=== PATIENT | female | born 1975 | race Hispanic/Latino ===

== ENCOUNTER 2023-01-08 23:19 | Inpatient (IN) | payer SELFPAY ==
[2023-01-08] MEDS ORDERED: NA CHLORIDE 0.9% 1,000 ML ONE (23:31)
[2023-01-08] MEDS ORDERED: Magnesium Sulfate 2gm IVPB 2 G/50 ML BAG IV ONE (23:35)
[2023-01-08 23:37] LABS: Arterial Blood Carboxyhemoglob 0.5 % (0-1.5); Blood Gas Oxyhemoglobin 95.8 % (94-97); Blood O2 Saturation 97.9 % (92-98.5)
[2023-01-08 23:48] LABS: Absolute Lymphocytes (CBC) 0.5 K/uL (0.7-4.9); Hematocrit 35.1 % (36.0-45.0); Lymphocytes % 5.8 % (15.3-44.8); MCV 93.2 fL (80-100); MPV 8.7 fL (7.6-11.3); RBC Red Blood Cell Count 3.77 M/uL (3.86-4.86)
[2023-01-09] LABS: Protime INR 1.02
[2023-01-09 00:13] LABS: ALT/SGPT 47 U/L (13-56); AST/SGOT 171 U/L (15-37); Albumin 3.4 g/dL (3.4-5.0); Alkaline Phosphatase 58 U/L (45-117); BUN Blood Urea Nitrogen 17 mg/dL (7-18); Bicarbonate 16 mEq/L (21-32); Bilirubin Direct 0.2 mg/dL (0-0.2); Bilirubin Indirect, Calculated 0.1 mg/dL (0.2-0.8); Bilirubin Total 0.3 mg/dL (0.2-1.0); Glomerular Filtration Rate 31 ml/min (=/>90); Glucose Level 86 mg/dL (74-106); Potassium 4.4 mEq/L (3.5-5.1); Protein, Total 6.8 g/dL (6.4-8.2); Sodium Level 132 mEq/L (136-145)
[2023-01-09 00:45] LABS: Blood Morphology Comment NOT SEEN (NOT SEEN); Platelet Estimate ADEQ
[2023-01-09 00:55] LABS: Specific Gravity < 1.005 (1.005-1.030); Urine Bacteria <20 /HPF (<20); Urine Bilirubin NEGATIVE (Negative); Urine Blood Negative (Negative); Urine Clarity Clear (Clear); Urine Color Colorless (Yellow); Urine Glucose NEGATIVE (Negative); Urine Protein NEGATIVE (Negative); Urine RBC None Seen /HPF (None Seen); Urine Urobilinogen Normal (Normal)
[2023-01-09 01:36] LABS: Barbiturates NEGATIVE (NEGATIVE); Benzodiazepines NEGATIVE (NEGATIVE); Cocaine NEGATIVE (NEGATIVE); METHAMPHETAM POSITIVE (NEGATIVE); Methadone NEGATIVE (NEGATIVE); Opiates NEGATIVE (NEGATIVE); Phencyclidine NEGATIVE (NEGATIVE); THC Cannibis NEGATIVE (NEGATIVE)
--- NOTE | 2023-01-09 03:32 | ER ---
Nurse's Notes [facility] [place] Name: Corrina Blake Age: 47 yrs Sex: Female : 1975 Arrival Date: 01/08/2023 Time: 23:19 Bed 4 Private MD: Diagnosis: Seroquel overdose;Acute urinary retention;Bandemia;Acute kidney injury Presentation: 01/08 23:21 Chief complaint: EMS states: EMS C/O patient possible overdose on Seroquel 200mg pf1 tablet x 10 pills per mother and patient had been drinking alcohol all day. [place] [employer] arrived with an ELIOT in place for patient. EMS stated patient was found laying on the bed unconscious and breathing. 23:21 Coronavirus screen: At this time, unable to obtain information related to travel pf1 outside the [place] Ebola Screen: Unable to complete the Ebola screening because: Patient is unresponsive. Initial Sepsis Screen: Does the patient meet any 2 criteria? HR > 90 bpm. Does the patient have a suspected source of infection? No. Patient's initial sepsis screen is negative. Risk Assessment: Do you want to hurt yourself or someone else? Unable to obtain. 23:21 Method Of Arrival: EMS: [facility] pf1 23:21 Acuity: ISMAEL 2 pf1 01/09 13:55 Onset of symptoms was January 09, 2023. ld1 Historical: - Allergies: 00:05 Unable to obtain; pf1 - Home Meds: 00:00 Adderall XR Oral [Active]; Seroquel 200 mg oral tablet [Active]; pf1 - PMHx: 00:00 ADD; pf1 - Immunization history:: Adult Immunizations unknown. - Social history:: Smoking status: unknown Patient uses alcohol, smell of ETOH from patient. - Unable to obtain history due to: altered mental status. Screenin:06 [facility] ED Fall Risk Assessment (Adult) History of falling in the last 3 months, pf1 including since admission No falls in past 3 months (0 pts) Confusion or Disorientation Yes (5 pts) Intoxicated or Sedated Yes (3 pts) Impaired Gait Yes (1 pt) Mobility Assist Device Used No (0 pt) Altered Elimination Yes (1 pt) Score/Fall Risk Level 3 or more points = High Risk Oriented to surroundings, Maintained a safe environment, Educated pt \\T\\ family on fall prevention, incl call for assistance when getting out of bed, Assessed \\T\\ reinforced patient's understanding of fall precautions, Provided non-skid footwear, Hourly rounding (assess needs \\T\\ fall precautionary measures) done, Used ambulatory aids as needed (educated on \\T\\ assisted with), Used gait belt as appropriate Implemented a Fall Risk Plan of Care, Remained w/in arm's length of patient and in sight while toileting, Offered frequent toileting (1:1 observation), Remained with patient while ambulating, Utilized family, sitter, or virtual ground intelligence officer as indicated. 00:17 Abuse screen: unknown. Nutritional screening: No deficits noted. Tuberculosis pf1 screening: unknown. Assessment: 01/08 23:35 Reassessment: Poison Control called, Spoke with Grisel, Case # [id number]. Recommendations pf1 are: monitor for elevated HR and BP, seizures, dysrhythmia, agitation, QT prolonged duration and to give magnesium and NS 0.9%, repeat labs, check magnesium level and EKG. 23:43 General: Appears distressed, ill, Behavior is uncooperative. Pain: Unable to use pain jb4 scale. Patient is unresponsive. Neuro: Mcadams Agitation-Sedation Scale (RASS): -3 Moderate Sedation Level of Consciousness is obtunded, Oriented to Pt only responsive to painful stimuli.. Cardiovascular: Patient's skin is warm and dry. Respiratory: Airway is patent Respiratory effort is even, unlabored, Respiratory pattern is regular, symmetrical. GI: No signs and/or symptoms were reported involving the gastrointestinal system. : No signs and/or symptoms were reported regarding the genitourinary system. EENT: No signs and/or symptoms were reported regarding the EENT system. Derm: Skin is intact, Skin is pink, warm \\T\\ dry. 01/09 00:19 Reassessment: Patient appears in no apparent distress at this time. Patient and/or pf1 family updated on plan of care and expected duration. Pain level reassessed. Patient states symptoms have not improved. 00:38 General: Boyfriend stated patient was asleep in bed when he arrived home from work, pf1 heard a thump, then found patient laying on the floor then assisted her back to bed. Best Friend stated patient gets depressed around her deceases mother's anniversary date that is coming up. Best Friend stated patient called texted her at 1630 a picture of the bottle of Seroquel, then called the patient and patient told her don't worry about it and to call her psychiatrist Dr. Boateng and hung the phone up. . 00:58 Reassessment: Pt wakes to verbal stimuli. remains lethargic but now following simple jb4 commands. 02:00 Reassessment: Pt continues to rest in bed with eyes closed, respirations remain even jb4 and unlabored. Family remains at the bedside. 03:00 Reassessment: No changes from previously documented assessment. Patient and/or family jb4 updated on plan of care and expected duration. Pain level reassessed. 03:55 Reassessment: Pt remains responsive to verbal stimuli and follows basic commands. jb4 Pupils are pinpoint and eyes have a deviated gaze. Continues to withdraw from pain, ER physician and admitting hospitalist are aware of pt's condition. 12:30 Reassessment: Attempted to call report on patient. Staff not sure if patient is coming ld1 up due to possible discharge. Notified Charge nuse. 13:00 Reassessment: Tried to call report - Nurse not accepting patient at this time due to ld1 possible discharge. Notified Charge nurse and greenhouse florist. 13:26 Reassessment: Attempted to call report - third time. Nurse at lunch at the moment. ld1 14:17 Reassessment: Called patient report - flipped patient to med surg room. Floor nursing ld1 staff called ER to report "Patient is not appropriate for medsurg admission." Notified ER charge nurse and greenhouse florist of situation. Vital Signs: 01/08 23:21 BP 83 / 50; Pulse 98; Resp 18; Temp 98(A); Pulse Ox 97% on 2 lpm NC; Weight 64.5 kg; pf1 23:45 BP 87 / 51; Pulse 101; Resp 15; Pulse Ox 100% on 2 lpm NC; jb4 01/09 00:22 BP 103 / 64; Pulse 100; Resp 12; Pulse Ox 100% on 2 lpm NC; jb4 00:58 BP 96 / 61; Pulse 93; Resp 13; Pulse Ox 100% on 2 lpm NC; jb4 02:00 BP 103 / 63; Pulse 91; Resp 13; Pulse Ox 100% on 2 lpm NC; jb4 03:00 BP 108 / 90; Pulse 88; Resp 10; Pulse Ox 100% on 2 lpm NC; jb4 03:59 BP 104 / 61; Pulse 90; Resp 11; Pulse Ox 100% on 2 lpm NC; jb4 08:26 BP 110 / 69; Pulse 96; Resp 13; Pulse Ox 100% on 2 lpm NC; zm 13:28 BP 101 / 79; Pulse 112; Resp 18; Pulse Ox 96% on R/A; ld1 ED Course: 01/08 23:21 Patient arrived in ED. sb4 23:21 No provider procedures requiring assistance completed. Maintain EMS IV. Dressing pf1 intact. Good blood return noted. Site clean \\T\\ dry. Gauge \\T\\ site: 18 gauge to LFA. 23:21 Arm band placed on right wrist. pf1 23:23 Angel Bose MD is Attending Physician. rt 23:25 Patient has correct armband on for positive identification. Placed in gown. Bed in low pf1 position. Side rails up X2. 23:40 Inserted saline lock: 18 gauge in right forearm, using aseptic technique. Blood pf1 collected. 23:42 Jeremías Penny RN is Primary Nurse. jb4 23:52 Chest Single View XRAY In Process Unspecified. EDMS 23:52 Shoulder Right (2 View) XRAY In Process Unspecified. EDMS 01/09 00:00 Straight cath inserted, using sterile technique, 14 Fr. Specimen obtained. Returned pf1 900ml urine output. Patient tolerated well. 00:05 Triage completed. pf1 00:27 CT Head C Spine In Process Unspecified. EDMS 00:30 Alas cath inserted, using sterile technique, 16 Fr., by ED staff, balloon inflated, to pf1 gravity drainage, clamped. 03:30 Fatoumata Mitchell MD is Hospitalizing Provider. rt 03:31 Patient admitted, IV remains in place. pf1 Administered Medications: 01/08 23:20 Drug: NS 0.9% IV 1000 ml Route: IV; Rate: 1 bolus; Site: left forearm; pf1 01/09 00:15 Follow up: Response: No adverse reaction; Marked relief of symptoms; IV Status: pf1 Completed infusion; IV Intake: 1000ml 01/08 23:42 Drug: Magnesium Sulfate IVPB 2 grams Route: IVPB; Infused Over: 2 hrs; Site: right jb4 forearm; 01/09 01:42 Follow up: Response: No adverse reaction; Marked relief of symptoms; IV Status: pf1 Completed infusion; IV Intake: 100ml 05:20 Drug: Magnesium Sulfate IVPB 1 grams Route: IVPB; Infused Over: 1 hrs; Site: right pf1 antecubital; 05:48 Follow up: Response: No adverse reaction; Marked relief of symptoms pf1 Medication: 04:00 VIS not applicable for this client. pf1 Intake: 00:15 IV: 1000ml; Total: 1000ml. pf1 01:42 IV: 100ml; Total: 1100ml. pf1 Outcome: 03:31 Decision to Hospitalize by Provider. rt 03:31 Admitted to ER Hold. Please see [facility] for further documentation. pf1 03:31 Condition: stable 03:31 Instructed on the need for admit, to friend Demonstrated understanding of instructions. 15:04 Patient left the ED. kj1 Signatures: Dispatcher [employer] EDMS Jeremías Penny RN RN jb4 Tahira Medina kj1 Georgia Vallejo RN RN ld1 Suzan Tirado Sophia PA-C PA-C [email or web address] Angel Bose MD MD rt Ramandeep Yan RN RN pf1 Corrections: (The following items were deleted from the chart) 00:58 00:22 BP 103 / 64; Pulse 100bpm; Resp 12bpm; Pulse Ox 100% RA; [place] [id number] 05:15 06/12 23:35 Reassessment: Poison Control called, Spoke with Grisel, Case # [id number]. 1 Recommendations are: monitor for elevated HR and BP, seizures, dysrhythmia, agitation, QT prolonged duration and to give magnesium and NS 0.9%. . pf1 01/09 06:32 00:38 General: Boyfriend stated patient was asleep in bed when he arrived home from [facility] work, heard a thump, then found patient laying on the floor then assisted her back to bed. Best Friend stated patient gets depressed around her deceases mother's birthday that is coming up. Best Friend stated patient called texted her at 1630 a picture of the bottle of Seroquel, then called the patient and patient told her don't worry about it and to call her psychiatrist Dr. Boateng and hung the phone up. . pf1
--- NOTE | 2023-01-09 03:32 | EDPHYS ---
Physician Documentation [facility] Name: Corrina Blake Age: 47 yrs Sex: Female : 1975 Arrival Date: 01/08/2023 Time: 23:19 Bed 4 Private MD: ED Physician Angel Bose HPI: 01/08 23:44 This 47 yrs old Female presents to ER via Unassigned with complaints of rt Possible overdose, altered mental status. 23:44 History limited due to patient with altered mental status. The patient presents to the rt ED fine possible overdose. About 1 week ago, the patient was prescribed 15 pills of 200 mg of Seroquel, family states that she has been drinking all day, found an empty bottle of Seroquel. Patient reportedly had somewhat low blood pressures to the 90s systolic. No further history could be obtained. Symptoms are severe in severity, no other aggravating or alleviating factors.. Historical: - Allergies: 01/09 00:05 Unable to obtain; pf1 - Home Meds: 00:00 Adderall XR Oral [Active]; Seroquel 200 mg oral tablet [Active]; pf1 - PMHx: 00:00 ADD; pf1 - Immunization history:: Adult Immunizations unknown. - Social history:: Smoking status: unknown Patient uses alcohol, smell of ETOH from patient. - Unable to obtain history due to: altered mental status. ROS: 01/08 23:44 Unable to obtain ROS due to altered mental status. rt Exam: 23:44 Head/Face: Normocephalic, atraumatic. rt 23:44 Chest/axilla: Normal chest wall appearance and motion. Nontender with no deformity. No lesions are appreciated. Cardiovascular: Regular rate and rhythm with a normal S1 and S2. No gallops, murmurs, or rubs. Normal PMI, no JVD. No pulse deficits. Respiratory: Lungs have equal breath sounds bilaterally, clear to auscultation and percussion. No rales, rhonchi or wheezes noted. No increased work of breathing, no retractions or nasal flaring. Abdomen/GI: Soft, non-tender, with normal bowel sounds. No distension or tympany. No guarding or rebound. No evidence of tenderness throughout. Skin: Warm, dry with normal turgor. Normal color with no rashes, no lesions, and no evidence of cellulitis. MS/ Extremity: Pulses equal, no cyanosis. Neurovascular intact. Full, normal range of motion. 23:44 Constitutional: The patient appears Somnolent, localizes the pain 23:44 Eyes: Constricted pupils, conjunctiva normal. 23:44 ECG was reviewed by the Attending Physician. 23:44 Neuro: Localizes to pain, moves all 4 extremities equally. Vital Signs: 23:21 BP 83 / 50; Pulse 98; Resp 18; Temp 98(A); Pulse Ox 97% on 2 lpm NC; Weight 64.5 kg; pf1 23:45 BP 87 / 51; Pulse 101; Resp 15; Pulse Ox 100% on 2 lpm NC; jb4 01/09 00:22 BP 103 / 64; Pulse 100; Resp 12; Pulse Ox 100% on 2 lpm NC; jb4 00:58 BP 96 / 61; Pulse 93; Resp 13; Pulse Ox 100% on 2 lpm NC; jb4 02:00 BP 103 / 63; Pulse 91; Resp 13; Pulse Ox 100% on 2 lpm NC; jb4 03:00 BP 108 / 90; Pulse 88; Resp 10; Pulse Ox 100% on 2 lpm NC; jb4 03:59 BP 104 / 61; Pulse 90; Resp 11; Pulse Ox 100% on 2 lpm NC; jb4 08:26 BP 110 / 69; Pulse 96; Resp 13; Pulse Ox 100% on 2 lpm NC; zm 13:28 BP 101 / 79; Pulse 112; Resp 18; Pulse Ox 96% on R/A; ld1 MDM: 01/08 23:23 Patient medically screened. rt 01/09 03:45 Differential Diagnosis Seroquel overdose, prolonged QT, anticholinergic toxidrome, rt acute renal failure. Data reviewed: vital signs, nurses notes, lab test result(s), EKG, radiologic studies. Consideration of Admission/Observation Patient was admitted/placed on observation. Management of patient was discussed with the following: Hospitalist: Agrees to admit. I considered the following discharge prescriptions or medication management in the emergency department Medications were administered in the Emergency Department. See MAR. Independent interpretation of the following test(s) in the Emergency Department CT Scan: My interpretation is No hemorrhage seen on interpretation of the CT scan images. 01/08 23:24 Order name: Acetaminophen; Complete Time: 01:31 rt 01/08 23:24 Order name: Basic Metabolic Panel; Complete Time: :31 rt 01/08 23:24 Order name: CBC with Diff; Complete Time: : rt 01/08 23:24 Order name: ETOH Level; Complete Time: :31 rt 01/08 23:24 Order name: Hepatic Function; Complete Time: :31 rt 01/08 23:24 Order name: PT-INR; Complete Time: : rt 01/08 23:24 Order name: Ptt, Activated; Complete Time: : rt 01/08 23:24 Order name: Salicylate; Complete Time: : rt 01/08 23:24 Order name: Urinalysis w/ reflexes; Complete Time: : rt 01/08 23:24 Order name: Urine Drug Screen; Complete Time: 01:37 rt 01/08 23:24 Order name: ABG; Complete Time: : rt 01/08 23:24 Order name: Magnesium; Complete Time: : rt 01/08 23:24 Order name: AMMONIA; Complete Time: : rt 01/08 23:57 Order name: Manual Differential; Complete Time: : EDMS 01/09 00:54 Order name: Test Serum, Qualitat; Complete Time: : EDMS 01/09 06:48 Order name: CBC with Automated Diff EDMS 01/09 06:50 Order name: Lactate w/ 2H reflex if indic. EDMS 01/09 07:18 Order name: Comprehensive Metabolic Panel EDMS 01/09 07:18 Order name: Phosphorus EDMS 01/09 07:18 Order name: Creatine Phosphokinase EDMS 01/09 07:18 Order name: Magnesium EDMS 01/09 07:18 Order name: Lipase EDMS 01/08 23:24 Order name: CT Head C Spine rt 01/08 23:24 Order name: Chest Single View XRAY rt 01/08 23:41 Order name: Shoulder Right (2 View) XRAY rt 01/08 23:24 Order name: EKG; Complete Time: 23:25 rt 01/08 23:24 Order name: EKG - Nurse/Tech; Complete Time: 23:34 rt 01/08 23:24 Order name: IV Saline Lock; Complete Time: 23:34 rt 01/08 23:24 Order name: Labs collected and sent; Complete Time: 23:46 rt 01/08 23:24 Order name: Suicide Precautions; Complete Time: 23:31 rt 01/08 23:24 Order name: Suicide Screening ([place]); Complete Time: 06:35 rt 01/09 00:38 Order name: Straight Cath; Complete Time: 00:38 pf1 01/09 00:38 Order name: Alas; Complete Time: 00:38 pf1 01/09 05:29 Order name: EKG - Nurse/Tech; Complete Time: 05:29 sb4 EC/12 23:44 Rate is 98 beats/min. Rhythm is regular, Normal Sinus Rhythm with No ectopy. QRS [place] rt is Normal. NV interval is normal. QRS interval is normal. QT interval is prolonged at 505 msec. Clinical impression: NSR w/ Non-specific ST/T Changes. Interpreted by me. Administered Medications: 23:20 Drug: NS 0.9% IV 1000 ml Route: IV; Rate: 1 bolus; Site: left forearm; pf1 01/09 00:15 Follow up: Response: No adverse reaction; Marked relief of symptoms; IV Status: pf1 Completed infusion; IV Intake: 1000ml 01/08 23:42 Drug: Magnesium Sulfate IVPB 2 grams Route: IVPB; Infused Over: 2 hrs; Site: right jb4 forearm; 01/09 01:42 Follow up: Response: No adverse reaction; Marked relief of symptoms; IV Status: pf1 Completed infusion; IV Intake: 100ml 05:20 Drug: Magnesium Sulfate IVPB 1 grams Route: IVPB; Infused Over: 1 hrs; Site: right pf1 antecubital; 05:48 Follow up: Response: No adverse reaction; Marked relief of symptoms pf1 Disposition Summary: 01/09/23 03:31 Hospitalization Ordered Hospitalization Status: Inpatient Admission rt Provider: Fatoumata Mitchell rt Condition: Fair rt Problem: new rt Symptoms: are unchanged rt Bed/Room Type: Standard rt Location: Telemetry/MedSurg (Inpatient)(01/09/23 11:04) bd Room Assignment: 407(01/09/23 11:04) bd Diagnosis - Seroquel overdose rt - Acute urinary retention rt - Bandemia rt - Acute kidney injury rt Forms: - Medication Reconciliation Form rt - SBAR form rt Critical care time excluding procedures: 03:46 Critical care time: Bedside Care: 30 minutes, Consultation: 5 minutes. Total time: 35 rt minutes Signatures: Dispatcher [employer] EDMS Bambi Groves Cindy, WINDY RN cg Jeremías Penny, RN RN jb4 Laxmi Marsh PALakesha PALakesha sb4 Angel Bose MD MD rt Ramandeep Yan, RN RN pf1 Corrections: (The following items were deleted from the chart) 00:54 06 23:25 Test, Urine+UC.LAB.BRZ ordered. EDMN EDMS 01/09 04:19 03:31 Telemetry/MedSurg (Inpatient) rt cg 04:19 03:31 rt cg 11:04 04:19 [facility] ER HOLD cg bd 11:04 04:19 ERHOLD- cg bd
--- NOTE | 2023-01-09 03:54 | P.HP ---
Certification for Inpatient Patient admitted to: Inpatient With expected LOS: <2 Midnights Patient will require the following post-hospital care: Other Practitioner: I am a practitioner with admitting privileges, knowledge of patient current condition, hospital course, and medical plan of care. Services: Services provided to patient in accordance with Admission requirements found in Title 42 Section 412.3 of the Code of Federal Regulations Patient History Date of Service: 01/09/23 Reason for admission: Seroquel OD History of Present Illness: Ms. Blake is a 47 year old female with past medical history of anxiety and ADHD who presented to the emergency department via EMS after suspected seroquel overdose. Friend at bedside as historian who states that she gets depressed around this time of year as it is her mother's birthday. She was prescribed 15 pills of 200 mg seroquel on January 01 for anxiety. Friend states that patient has been drinking alcohol all day today and later texted her a photo of the seroquel bottle. When her and patient's boyfriend went to check on her later, she was barely responsive and the bottle of seroquel was empty. Upon arrival to ED, she was hypotensive- 80s/50s. Poison control was contacted and recommended to monitor patient for seizures, dysrhythmia, agitation, QT prolongation. EKG did demonstrate a prolonged QT. She was given 2L fluid bolus as well as [address] negative. Labs are significant for hemoglobin 11.4, hematocrit 35.1, sodium 132, CO2 16, creatinine 1.9, AST 171, serum alcohol 196, UDS positive for amphetamine (has adderall prescription). BP has improved, respirations remain slow, patient still only responsive to painful stimuli. Repeat EKG with slightly longer QT. Additional gram of magnesium administered. Will admit for further management. Allergies morphine Allergy (Verified 01/09/23 04:19) Rash Penicillins Allergy (Verified 01/09/23 04:19) Rash Home medications list reviewed: Yes - Past Medical/Surgical History Diabetic: No -: ADHD -: Anxiety Psychosocial/ Personal History: Patient lives at home. She has a boyfriend. - Family History Family History: Reviewed- Non-Contributory - Social History Smoking Status: Unknown if ever smoked Alcohol use: Yes CD- Drugs: No Caffeine use: Yes Place of Residence: Home Review of Systems is unable to be obtained Physical Examination - Vital Signs Temperature: 98 F Blood Pressure: 104/61 Pulse: 90 Respirations: 11 Pulse Ox (%): 100 (2L NC) - Physical Exam General: Other (responsive only to painful stimuli) HEENT: Atraumatic, Other (pupils pinpoint, reactive), Sclerae nonicteric Neck: Supple, 2+ carotid pulse no bruit Respiratory: Clear to auscultation bilaterally, Normal air movement Cardiovascular: Regular rate/rhythm, Normal S1 S2 Gastrointestinal: Normal bowel sounds, No tenderness Musculoskeletal: No tenderness Integumentary: No rashes Neurological: Normal tone, Normal reflexes 2+ Urinary: Alas catheter - Studies Laboratory Data (last 24 hrs) 01/08/23 23:30: PT 11.2, INR 1.02, APTT 27.1 01/08/23 23:30: WBC 8.70, Hgb 11.4 L, Hct 35.1 L, Plt Count 213 01/08/23 23:30: Sodium 132 L, Potassium 4.4, BUN 17, Creatinine 1.99 H, Glucose 86, Magnesium 2.0, Total Bilirubin 0.3, AST 171 H, ALT 47, Alkaline Phosphatase 58 Assessment and Plan - Problems (Diagnosis) (1) Drug overdose Current Visit: Yes Status: Acute Qualifiers: Encounter type: initial encounter Injury intent: undetermined intent Qualified Code(s): T50.904A - Poisoning by unspecified drugs, medicaments and biological substances, undetermined, initial encounter (2) Anticholinergic syndrome Current Visit: Yes Status: Acute Qualifiers: Encounter type: initial encounter Injury intent: undetermined intent Filippo lified Code(s): T44.3X4A - Poisoning by other parasympatholytics [anticholinergics and antimuscarinics] and spasmolytics, undetermined, initial encounter (3) Bandemia Current Visit: Yes Status: Acute (4) CORTNEY (acute kidney injury) Current Visit: Yes Status: Acute (5) Anxiety Current Visit: Yes Status: Chronic (6) ADHD Current Visit: Yes Status: Chronic Qualifiers: Attention deficit-hyperactivity disorder type: unspecified Qualified Code(s): F90.9 - Attention-deficit hyperactivity disorder, unspecified type (7) Anemia Current Visit: Yes Status: Chronic Qualifiers: Anemia type: unspecified type Qualified Code(s): D64.9 - Anemia, unspecified - Plan Patient is admitted for further management of seroquel overdose. Poison control case #[id number]. Unconfirmed if this was a suicide attempt or not. Patient is not awake/alert enough to verify. ELIOT in place per [place] [employer]. Continue IV hydration. Repeat labs- CBC, BMP, CPK, mag. Bandemia likely stress reaction. Alas in place as she did have some urinary retention, likely anticholingeric toxidrome. Psychiatry consulted. May need [facility] evaluation if unavailable. Consider another EKG to evaluate QT. Monitor and replete electrolytes per protocol. NPO for now. Currently requiring 2L NC. Wean as tolerated. Current respirations slow. Full code. Discharge Plan: Home Plan to discharge in: 48 Hours - Advance Directives Does patient have a Living Will: No Does patient have a Durable POA for Healthcare: No - Code Status/Comfort Care Code Status Assessed: Yes Code Status: Full Code Physician Review: Patient Assessed, Agree with Above Assessment and Plan Critical Care: No Time Spent Managing Pts Care (In Minutes): 50
[2023-01-09] MEDS ORDERED: NA CHLORIDE 0.9% 1,000 ML ONE (04:19)
[2023-01-09 04:22] VITALS: BMI 25.9
[2023-01-09] MEDS ORDERED: ALBUTEROL 2.5 MG/3 ML NEB SOL NEB PRN ×2 (04:35→14:00)
[2023-01-09] MEDS: NA CHLORIDE 0.9% 1,000 ML IV SCH ×3 (04:35→23:12)
[2023-01-09] MEDS ORDERED: MAGNESIUM SULFATE 1 gm IVPB 1 GM/100 ML BAG IV ONE (05:16)
[2023-01-09 06:31] LABS: Absolute Lymphocytes (CBC) 0.5 K/uL (0.7-4.9); Hematocrit 39.4 % (36.0-45.0); Lymphocytes % 5.5 % (15.3-44.8); MPV 8.5 fL (7.6-11.3); RBC Red Blood Cell Count 4.24 M/uL (3.86-4.86)
[2023-01-09 06:51] LABS: ALT/SGPT 147 U/L (13-56); AST/SGOT 829 U/L (15-37); Albumin 3.3 g/dL (3.4-5.0); Alkaline Phosphatase 68 U/L (45-117); BUN Blood Urea Nitrogen 21 mg/dL (7-18); Bicarbonate 17 mEq/L (21-32); Bilirubin Total 0.4 mg/dL (0.2-1.0); Glomerular Filtration Rate 28 ml/min (=/>90); Glucose Level 90 mg/dL (74-106); Lipase 28 U/L (13-75); Phosphorus 6.4 mg/dL (2.5-4.9); Potassium 5.3 mEq/L (3.5-5.1); Protein, Total 7.1 g/dL (6.4-8.2); Sodium Level 131 mEq/L (136-145)
[2023-01-09 07:17] LABS: Creatine Phosphokinase > 14000 U/L (26-192)
[2023-01-09] MEDS: ENOXAPARIN 30 MG/0.3 ML SQ SCH (09:00)
[2023-01-09] MEDS ORDERED: ENOXAPARIN 40 MG/0.4 ML SQ SCH (09:00)
--- NOTE | 2023-01-09 22:03 | RAD REPORT ---
EXAM DESCRIPTION: CT - Head C Spine Mpr Wo Con - 01/09/2023 6:49 am CLINICAL HISTORY: The patient is 47 years old and is Female; ams TECHNIQUE: Axial computed tomography images of the head/brain and cervical spine without intravenous contrast. Sagittal and coronal reformatted images were created and reviewed. This CT exam was pe rformed using one or more of the following dose reduction techniques: automated exposure control, a djustment of the mA and/or kV according to patient size, and/or use of iterative reconstruction techn ique. COMPARISON: No relevant prior studies available. FINDINGS: Brain: Unremarkable. No hemorrhage. No significant white matter disease. No edema. Ventricles: Unremarkable. No ventriculomegaly. Skull: No acute fracture. Sinuses: Sphenoid sinus mucosal thickening. Mastoid air cells: Unremarkable as visualized. No mastoid effusion. Vertebrae: See below. Discs/spinal canal/neural foramina: Moderate right and moderate to severe left neural foraminal n arrowing at C4-5. Moderate bilateral neural foraminal narrowing at C5-6. Disc space narrowing with degenerative endplate changes at C4-5 and C5-6. Soft tissues: Unremarkable. IMPRESSION: No acute intracranial abnormality. No acute findings in the cervical spine. Electronically signed by: Harris Wilson MD 01/09/2023 12:48 AM CDT Due to temporary technical issues with the PACS/Fluency reporting system, reports are being signed by the in house radiologists without review as a courtesy to insure prompt reporting. The interpreting radiologist is fully responsible for the content of the report.
--- NOTE | 2023-01-09 22:05 | RAD REPORT ---
EXAM DESCRIPTION: RAD - Shoulder Right 2 View - 01/08/2023 11:51 pm CLINICAL HISTORY: The patient is 47 years old and is Female; ams TECHNIQUE: Two or more views of the right shoulder. COMPARISON: No relevant prior studies available. FINDINGS: Bones/joints: Unremarkable. No acute fracture. No dislocation. Soft tissues: Unremarkable. * A single impression for all exams can be found at the end of this report IMPRESSION: XR Chest, 1 View: No acute findings in the chest. XR Right Shoulder Complete, 2 or More Views: No acute fracture or dislocation. Electronically signed by: Harris Wilson MD 01/09/2023 12:10 AM CDT Due to temporary technical issues with the PACS/Fluency reporting system, reports are being signed by the in house radiologists without review as a courtesy to insure prompt reporting. The interpreting radiologist is fully responsible for the content of the report.
--- NOTE | 2023-01-09 22:08 | RAD REPORT ---
EXAM DESCRIPTION: RAD - Chest Single View - 01/08/2023 11:51 pm CLINICAL HISTORY: The patient is 47 years old and is Female; ams TECHNIQUE: Frontal view of the chest. COMPARISON: No relevant prior studies available. FINDINGS: Lungs: Unremarkable. No consolidation. Pleural space: Unremarkable. No pneumothorax. Heart: Unremarkable. Mediastinum: Unremarkable. Bones/joints: Unremarkable. Upper abdomen: Elevation of the right hemidiaphragm. * A single impression for all exams can be found at the end of this report EXAM DESCRIPTION: XR Right Shoulder Complete, 2 or More Views CLINICAL HISTORY: The patient is 47 years old and is Female; ams TECHNIQUE: Two or more views of the right shoulder. COMPARISON: No relevant prior studies available. FINDINGS: Bones/joints: Unremarkable. No acute fracture. No dislocation. Soft tissues: Unremarkable. * A single impression for all exams can be found at the end of this report IMPRESSION: XR Chest, 1 View: No acute findings in the chest. XR Right Shoulder Complete, 2 or More Views: No acute fracture or dislocation. Electronically signed by: Harris Wilson MD 01/09/2023 12:10 AM CDT Due to temporary technical issues with the PACS/Fluency reporting system, reports are being signed by the in house radiologists without review as a courtesy to insure prompt reporting. The interpreting radiologist is fully responsible for the content of the report.
[2023-01-10 07:03] LABS: Absolute Lymphocytes (CBC) 0.7 K/uL (0.7-4.9); Hematocrit 33.8 % (36.0-45.0); Lymphocytes % 5.7 % (15.3-44.8); MCV 92.6 fL (80-100); MPV 8.6 fL (7.6-11.3); RBC Red Blood Cell Count 3.65 M/uL (3.86-4.86)
[2023-01-10 07:37] LABS: Albumin 2.9 g/dL (3.4-5.0); Bilirubin Total 0.5 mg/dL (0.2-1.0); Potassium 4.5 mEq/L (3.5-5.1); Protein, Total 6.4 g/dL (6.4-8.2)
[2023-01-10] MEDS: NA CHLORIDE 0.9% 1,000 ML IV SCH (07:38)
[2023-01-10] MEDS: ENOXAPARIN 30 MG/0.3 ML SQ SCH (07:39)
--- NOTE | 2023-01-10 08:20 | EKG ---
Test Date: 2023-01-09 Test Time: 05:05:00 Supervisor Treating And Pumping: ETIENNE MEASUREMENT RESULTS: Intervals: Rate: 84 MS: 150 QRSD: 88 QT: 436 QTc: 515 [place]: P: 56 MS: 150 QRS: 52 T: 47 INTERPRETIVE STATEMENTS: Normal sinus rhythm Prolonged QT Abnormal ECG Compared to ECG 01/08/2023 23:25:20 ST (T wave) deviation no longer present Electronically Signed On 01-10-23 08:18:01 CDT by Robert Kirk
--- NOTE | 2023-01-10 08:21 | EKG ---
Test Date: 2023-01-08 Test Time: 23:25:20 Physician Compensation Analyst: YFN MEASUREMENT RESULTS: Intervals: Rate: 98 UT: 140 QRSD: 86 QT: 396 QTc: 505 [place]: P: 72 UT: 140 QRS: 75 T: 46 INTERPRETIVE STATEMENTS: Normal sinus rhythm Nonspecific ST abnormality Prolonged QT Abnormal ECG No previous ECG available for comparison Electronically Signed On 01-10-23 08:18:04 CDT by Robert Kirk
--- NOTE | 2023-01-10 10:06 | P.PN ---
Date of Service: 01/10/23 Subjective More awake and alert; not suicidal; rhabdomyolysis from fall; also unsure as to the quantity of seroquel-NMS is in the differential; ALT/AST from muscle enzymes Physical Examination - Vital Signs reviewed - Physical Exam General: Other (responsive only to painful stimuli) Respiratory: Clear to auscultation bilaterally, Normal air movement Cardiovascular: Regular rate/rhythm, Normal S1 S2 Gastrointestinal: Normal bowel sounds, No tenderness Musculoskeletal: right shoulder and right hip (decreased ROM in the right shoulder) Neurological: No focal deficits Urinary: Alas catheter Assessment and Plan - Problems (Diagnosis) (1) Drug overdose Current Visit: Yes Status: Acute Qualifiers: Encounter type: initial encounter Injury intent: undetermined intent Qualified Code(s): T50.904A - Poisoning by unspecified drugs, medicaments and biological substances, undetermined, initial encounter (2) Anticholinergic syndrome Current Visit: Yes Status: Acute Qualifiers: Encounter type: initial encounter Injury intent: undetermined intent Qualified Code(s): T44.3X4A - Poisoning by other parasympatholytics [anticholinergics and antimuscarinics] and spasmolytics, undetermined, initial encounter (3) Bandemia Current Visit: Yes Status: Acute (4) CORTNEY (acute kidney injury) Current Visit: Yes Status: Acute (5) Anxiety Current Visit: Yes Status: Chronic (6) ADHD Current Visit: Yes Status: Chronic Qualifiers: Attention deficit-hyperactivity disorder type: unspecified Qualified Code(s): F90.9 - Attention-deficit hyperactivity disorder, unspecified type (7) Anemia Current Visit: Yes Status: Chronic Qualifiers: Anemia type: unspecified type Qualified Code(s): D64.9 - Anemia, unspecified - Plan 1. IVFs-D5 w/ 3 amp of sodium bicarb; 2. Renal function elevated; monitor urine pH 3. Nephrology consult 4. Renal US 5. Shoulder and hip X-rays 6. GI/DVT prophyalxis - Code Status/Comfort Care Code Status Assessed: Yes Code Status: Full Code Physician Review: Patient Assessed, Agree with Above Assessment and Plan Critical Care: No Time Spent Managing Pts Care (In Minutes): 50
[2023-01-10] MEDS: D5W 1,000 ML with NA BICARB 8.4% 150 MEQ IV SCH ×4 (10:30→22:03)
--- NOTE | 2023-01-10 11:36 | RAD REPORT ---
EXAM DESCRIPTION: RAD - Hip Right 2 View - 01/10/2023 11:27 am CLINICAL HISTORY: Right hip pain FINDINGS: No fracture or dislocation is seen. 2.5 centimeter area of increased density overlies the right ilium. This either represents contents wi thin bowel or bone sclerosis. Pelvic x-ray recommended for further evaluation
--- NOTE | 2023-01-10 12:15 | RAD REPORT ---
EXAM DESCRIPTION: US - Renal Ultrasound-Complete - 01/10/2023 11:51 am CLINICAL HISTORY: Acute renal failure COMPARISON: None. FINDINGS: The right kidney measures 10 cm with an increased echotexture. The left kidney measures 11 cm with an increased echotexture. Hydronephrosis is not seen. Alas catheter is present within a collapsed bladder. Echogenic structures within the bladder may rep resent calcifications IMPRESSION: Mildly increased renal echotexture may indicate parenchymal disease
--- NOTE | 2023-01-10 12:44 | RAD REPORT ---
EXAM DESCRIPTION: CT - Shoulder Right Wo Cont - 01/10/2023 11:20 am CLINICAL HISTORY: S/p fall; decrease ROM COMPARISON: Shoulder Right 2 View dated 01/08/2023 TECHNIQUE: Thin cut axial CT imaging of the right shoulder was performed without IV contrast. Multip lanar reformats were generated and reviewed. All CT scans are performed using dose optimization technique as appropriate and may include automated exposure control or mA/KV adjustment according to patient size. FINDINGS: Motion artifact somewhat limits evaluation. No acute fracture or dislocation. Mild cranial translation of the humeral head. Cortical irregularities and subchondral cystic changes along the greater tuberosity of the humerus. These findings would suggest ongoing chronic rotator cuf f changes. Glenohumeral articulation is otherwise well-maintained. [id number] AC joint degenerative change s with some intra-articular vacuum phenomenon. No focal suspicious osseous lesion. The periarticular soft tissues are unremarkable. The visualized aspects of the right axilla are unremarkable. Segmental opacification, possibly atelec tatic, involving the right lower lobe adjacent to the major fissure, partially visualized. IMPRESSION: No acute osseous abnormality. Findings suggestive of chronic rotator cuff changes, and mild to moderate AC joint degenerative pulido es, as above.
[2023-01-10 16:09] LABS: BUN Blood Urea Nitrogen 36 mg/dL (7-18); Bicarbonate 21 mEq/L (21-32); Creatine Phosphokinase > 14000 U/L (26-192); Glomerular Filtration Rate 20 ml/min (=/>90); Glucose Level 131 mg/dL (74-106); Potassium 3.9 mEq/L (3.5-5.1); Sodium Level 132 mEq/L (136-145)
[2023-01-10] MEDS ORDERED: TRAMADOL 37.5mg/APAP 325mg PER TAB PO PRN (19:52)
[2023-01-11] MEDS ORDERED: LORATADINE 10 MG TAB PO PRN (00:53)
[2023-01-11] MEDS: D5W 1,000 ML with NA BICARB 8.4% 150 MEQ IV SCH ×6 (05:53→16:40)
[2023-01-11 06:40] LABS: Absolute Lymphocytes (CBC) 1.1 K/uL (0.7-4.9); Hematocrit 35.2 % (36.0-45.0); Lymphocytes % 8.5 % (15.3-44.8); MCV 92.2 fL (80-100); MPV 9.1 fL (7.6-11.3); RBC Red Blood Cell Count 3.82 M/uL (3.86-4.86)
[2023-01-11 06:50] LABS: Bilirubin Total 0.6 mg/dL (0.2-1.0); Potassium 3.5 mEq/L (3.5-5.1); Protein, Total 6.8 g/dL (6.4-8.2)
[2023-01-11] MEDS: ENOXAPARIN 30 MG/0.3 ML SQ SCH (08:00)
[2023-01-11 09:24] VITALS: O2SAT 92
--- NOTE | 2023-01-11 10:04 | P.PN ---
Date of Service: 01/11/23 Subjective Patient is doing well with no new complaints. Patient's clinical symptoms continue to improve. Renal function is stable. More awake and alert. Following commands. Will DC Alas catheter. She is wanting to go home. CPK is down to under 14,000 and renal function is starting to improve. We will repeat labs later today and if there is significant improvement that she possibly could go home later this evening. Physical Examination - Vital Signs reviewed - Physical Exam General: Patient is awake and alert and oriented to person place and time; denies suicidal ideations Respiratory: Clear to auscultation bilaterally, Normal air movement Cardiovascular: Regular rate/rhythm, Normal S1 S2 Gastrointestinal: Normal bowel sounds, No tenderness Musculoskeletal: right shoulder and right hip (decreased ROM in the right shoulder) Neurological: No focal deficits Urinary: Alas catheter Assessment and Plan - Problems (Diagnosis) (1) Drug overdose Current Visit: Yes Status: Acute Qualifiers: Encounter type: initial encounter Injury intent: undetermined intent Qualified Code(s): T50.904A - Poisoning by unspecified drugs, medicaments and biological substances, undetermined, initial encounter (2) Anticholinergic syndrome Current Visit: Yes Status: Acute Qualifiers: Encounter type: initial encounter Injury intent: undetermined intent Qualified Code(s): T44.3X4A - Poisoning by other parasympatholytics [anticholinergics and antimuscarinics] and spasmolytics, undetermined, initial encounter (3) Bandemia Current Visit: Yes Status: Acute (4) CORTNEY (acute kidney injury) Current Visit: Yes Status: Acute (5) Anxiety Current Visit: Yes Status: Chronic (6) ADHD Current Visit: Yes Status: Chronic Qualifiers: Attention deficit-hyperactivity disorder type: unspecified Qualified Code(s): F90.9 - Attention-deficit hyperactivity disorder, unspecified type (7) Anemia Current Visit: Yes Status: Chronic Qualifiers: Anemia type: unspecified type Qualified Code(s): D64.9 - Anemia, unspecified - Plan 1. IVFs-D5 w/ 3 amp of sodium bicarb-change IV fluids to NS at 150 cc an hour; 2. Renal function is improved 3. Nephrology consult if symptoms worsen 4. Renal US negative 5. Shoulder and hip X-rays 6. CPK is improved 7. GI/DVT prophyalxis - Code Status/Comfort Care Code Status Assessed: Yes Code Status: Full Code Physician Review: Patient Assessed, Agree with Above Assessment and Plan Critical Care: No Time Spent Managing Pts Care (In Minutes): 50
--- NOTE | 2023-01-11 10:24 | P.DS ---
Discharge Date: 01/11/23 Disposition: ROUTINE DISCHARGE Discharge Condition: GOOD Reason for Admission: Seroquel OD Brief History of Present Illness: Ms. Blake is a 47 year old female with past medical history of anxiety and ADHD who presented to the emergency department via EMS after suspected seroquel overdose. Friend at bedside as historian who states that she gets depressed around this time of year as it is her mother's birthday. She was pres cribed 15 pills of 200 mg seroquel on January 01 for anxiety. Friend states that patient has been drinking alcohol all day today and later texted her a photo of the seroquel bottle. When her and patient's boyfriend went to check on her later, she was barely responsive and the bottle of seroquel was empty. Upon arrival to ED, she was hypotensive- 80s/50s. Poison control was contacted and recommended to monitor patient for seizures, dysrhythmia, agitation, QT prolongation. EKG did demonstrate a prolonged QT. She was given 2L fluid bolus as well as [address] negative. Labs are significant for hemoglobin 11.4, hematocrit 35.1, sodium 132, CO2 16, creatinine 1.9, AST 171, serum alcohol 196, UDS positive for amphetamine (has adderall prescription). BP has improved, respirations remain slow, patient still only responsive to painful stimuli. Repeat EKG with slightly longer QT. Additional gram of magnesium administered. Will admit for further management. Hospital Course: Patient had a significantly elevated CPK level. Patient had developed rhabdomyolysis and renal failure. We went ahead and started patient on bicarb drip and aggressive IV hydration. When I spoke with patient she denied being suicidal. She stated that it was an unintentional overdose. She will follow-up with her psychiatrist as an outpatient. Her renal function finally started improving and her CPK has started coming down. I anticipate her being able to go home with pain control as she does have pain in her right shoulder and hip from the fall when she fell off the bed. No significant injuries reported on imaging studies. At this time, patient is clinically doing well and patient should be able to discharge after supper this evening as long as labs continue to show significant improvement. Vital Signs/Physical Exam: Temp Pulse Resp BP Pulse Ox 99.2 F 88 14 142/85 H 92 01/11/23 08:00 01/11/23 08:00 01/11/23 08:00 01/11/23 08:00 01/11/23 08:00 Laboratory Data at Discharge: WBC 12.90 thou/uL (4.3-10.9) H 01/11/23 05:45 Hgb 11.6 g/dL (12.0-15.0) L 01/11/23 05:45 Hct 35.2 % (36.0-45.0) L 01/11/23 05:45 Plt Count 204 thou/uL (152-406) 01/11/23 05:45 PT 11.2 SECONDS (9.5-12.5) 01/08/23 23:30 INR 1.02 01/08/23 23:30 APTT 27.1 SECONDS (24.3-36.9) 01/08/23 23:30 Sodium 134 mEq/L (136-145) L 01/11/23 05:45 Potassium 3.5 mEq/L (3.5-5.1) 01/11/23 05:45 BUN 24 mg/dL (7-18) H 01/11/23 05:45 Creatinine 2.16 mg/dL (0.55-1.02) H 01/11/23 05:45 Glucose 133 mg/dL (74-106) H 01/11/23 05:45 Phosphorus 6.4 mg/dL (2.5-4.9) H 01/09/23 06:15 Magnesium 3.0 mg/dL (1.6-2.4) H 01/09/23 06:15 Total Bilirubin 0.6 mg/dL (0.2-1.0) 01/11/23 05:45 AST 450 U/L (15-37) H 01/11/23 05:45 ALT 143 U/L (13-56) H 01/11/23 05:45 Alkaline Phosphatase 72 U/L (45-117) D 01/11/23 05:45 Lipase 28 U/L (13-75) 01/09/23 06:15 Home Medications: Tramadol HCl/Acetaminophen [Tramadol-Acetaminophn 37.5-325] 1 tab PO Q12HP PRN #30 tab 01/11/23 New Medications: Tramadol HCl/Acetaminophen [Tramadol-Acetaminophn 37.5-325] 1 tab PO Q12HP PRN #30 tab PRN Reason: Pain Scale 8-10 (Severe) Physician Discharge Instructions: -DC IV and DC home -Follow-up with PCP in 1 to 2 weeks -Follow-up with Psychiatrist in 1 to 2 weeks -Please call Dr. Mitchell at [phone] if any questions regarding hospital stay -Please call nursing station at [phone] if any nursing or medication questions -Return to the emergency room if symptoms worsen Diet: Renal Activity: Fall precautions
[2023-01-11] MEDS: NA CHLORIDE 0.9% 1,000 ML IV SCH ×2 (12:07→15:40)
[2023-01-11 13:09] LABS: Specific Gravity 1.005 (1.005-1.030); Urine Bacteria <20 /HPF (<20); Urine Bilirubin NEGATIVE (Negative); Urine Blood 2+ (Negative); Urine Clarity Clear (Clear); Urine Color Colorless (Yellow); Urine Glucose TRACE (Negative); Urine Protein NEGATIVE (Negative); Urine RBC <5 /HPF (None Seen); Urine Urobilinogen Normal (Normal); Urine pH 7.5 (5.0-7.0)
[2023-01-11 14:28] LABS: Albumin 2.7 g/dL (3.4-5.0); Bilirubin Total 0.5 mg/dL (0.2-1.0); Potassium 3.2 mEq/L (3.5-5.1); Protein, Total 6.3 g/dL (6.4-8.2)
[2023-01-11 16:32] VITALS: BP 134/88; TEMP 99.6
[2023-01-11 19:17] LABS: Potassium 3.6 mEq/L (3.5-5.1)
== END 2023-01-11 20:00 | disposition home or self-care (01) | DRG 918 ==
LOC: ER 23:19 → ERHOLD 01-09 03:37 → 4TH 01-09 13:40
PROVIDERS: ADMIT Hospitalist; ATTEND Hospitalist
PROC: 0T9B70Z Drainage of Bladder with Drainage Device, Via Natural or Artificial Opening (ICD-10-PCS; principal; 2023-01-09)
DX: T43.594A Poisoning by other antipsychotics and neuroleptics, undetermined, initial encounter (principal); N17.9 Acute kidney failure, unspecified; M62.82 Rhabdomyolysis; T44.3X4A Poisoning by other parasympatholytics [anticholinergics and antimuscarinics] and spasmolytics, undetermined, initial encounter; I95.9 Hypotension, unspecified; F90.9 Attention-deficit hyperactivity disorder, unspecified type; F41.9 Anxiety disorder, unspecified; D64.9 Anemia, unspecified; R33.9 Retention of urine, unspecified
CPT/HCPCS: 36415; 36600; 51702; 70450; 71045; 72125; 73200; 76770; 80048; 80053; 80076; 80143; 80179; 80307; 81001; 82077; 82140; 82550; 82805; 83605; 83690; 83735; 83874; 84100; 84703; 85025; 85610; 85730; 93005; 94640; 94760; 96365; 96366; 99285; J1650; J3475; J7030; J7613